=== PATIENT | male | born 1935 | race Asian ===

== ENCOUNTER 2016-04-30 12:58 | Inpatient (IN) | payer MEDICARE ==
[~2016-04-30] VITALS: Ht 170.2 cm; Wt 70.0 kg
[2016-04-30 14:27] LABS: Albumin 3.5 g/dL (3.4-5.0); BUN/Creatinine Ratio 22.2; Basophils # (auto) 0 uL; Basophils % (auto) 0.4 % (0.0-2.0); Calcium 8.9 mg/dL (8.5-10.1); Eosinophils # (auto) 0 uL; Eosinophils % (auto) 0.2 % (0.0-7.0); Hematocrit 40.6 % (41.0-53.0); Hemoglobin 13.1 g/dL (13.5-17.5); Lymphocytes % (auto) 16.2 % (10.0-50.0); Magnesium 2.4 mg/dL (1.6-2.6); Mean Corpuscular Hemoglobin 29.8 pg (28.0-32.0); Mean Corpuscular Hgb Conc. 32.2 g/dL (32.0-36.0); Mean Corpuscular Volume 92.5 fL (80.0-100.0); Mean Platelet Volume 9.4 fL (7.4-10.4); Monocytes # (auto) 0.8 uL; Monocytes % (auto) 12.1 % (0.0-12.0); Neutrophils # (auto) 4.5 uL; Neutrophils % (auto) 71.1 % (37.0-80.0); Platelet Count (auto) 150 10^3/uL (140-450); Potassium 3.6 mmol/L (3.5-5.1); Red Cell Distribution Width 15.6 % (11.6-16.0); White Blood Cell 6.4 10^3/uL (4.4-10.8)
[2016-04-30 14:30] LABS: INR 1.12 (0.9-1.15); Partial Thromboplastin Time 25.8 sec (22.64-33.71); Prothrombin Time 11.5 sec (9.37-12.3); Total Protein 8.3 g/dL (6.4-8.2)
[2016-04-30] MEDS ORDERED: SODIUM CHLORIDE 0.9% 1,000 ML IVB ONE (15:07)
[2016-04-30 15:21] LABS: Urine Blood Negative /uL (Negative); Urine Color Yellow (Yellow); Urine Glucose Normal (Normal); Urine Hyaline Cast FEW /lpf (0 - 2); Urine Ketone TRACE (Negative); Urine Nitrite Negative (Negative); Urine RBC 2 /hpf (0 - 3); Urine Squamous Epithelial Cell FEW /hpf (<5); Urine pH 5.5 (5.0-8.0)
[2016-04-30 15:28] LABS: Amylase 40 U/L (25-115)
[2016-04-30 15:40] LABS: Urine Bilirubin Negative (Negative)
[2016-04-30] MEDS ORDERED: PANTOPRAZOLE SODIUM 40 MG/10 ML VIAL IV ONE (16:30)
[2016-04-30] MEDS ORDERED: cefTRIAXone 1GM/50ML D5W 50 ML IV ONE (16:30)
[2016-04-30] MEDS ORDERED: SODIUM CHLORIDE 0.9% 1,000 ML IV ONE (16:30)
[2016-04-30] MEDS ORDERED: HYDROcodone-ACET 5/325MG TAB PO PRN (18:45)
[2016-04-30] MEDS ORDERED: MORPHINE SULF INJ 2 MG/ML SYRINGE 1ML IV PRN ×2 (18:45)
[2016-04-30] MEDS ORDERED: ONDANSETRON HCL 4 MG/2 ML VIAL IV PRN (18:45)
[2016-04-30] MEDS ORDERED: NITROGLYCERIN 0.4 MG SL TAB SL PRN (18:45)
[2016-04-30] MEDS ORDERED: ACETAMINOPHEN 325 MG TAB PO PRN (18:45)
[2016-04-30] MEDS ORDERED: DOCUSATE SOD 100 MG CAP PO PRN (18:45)
[2016-04-30] MEDS ORDERED: TEMAZEPAM 15 MG CAP PO PRN (18:45)
[2016-04-30] MEDS ORDERED: DEXTROSE (50%) 50ML SYRG IV PRN (18:45)
[2016-04-30] MEDS: SODIUM CHLORIDE 0.9% 1,000 ML IV SCH (18:49)
[2016-04-30] MEDS ORDERED: METOPROLOL SUCCINATE XL 50 MG TAB PO ONE (19:00)
[2016-04-30] MEDS ORDERED: MULTIPLE VITAMIN TAB PO ONE (19:00)
[2016-04-30 20:31] VITALS: BP 116/55
[2016-04-30] MEDS ORDERED: MET50T PO (21:10)
[2016-04-30] MEDS ORDERED: LEV100T PO (21:10)
[2016-04-30] MEDS: FAMOTIDINE 20 MG TAB PO SCH (21:27)
[2016-04-30] MEDS: ACCU-CHEK COMFORT CURVE STRIP VI SCH (21:28)
[2016-04-30] MEDS: InsuLIN REG 1unit/0.01ml Soln (100units/ml) SC SCH (21:30)
[2016-04-30 22:07] VITALS: BP 116/55
[2016-05-01] MEDS: SODIUM CHLORIDE 0.9% 1,000 ML IV SCH ×3 (02:44→17:20)
[2016-05-01 05:00] VITALS: BP 119/53
[2016-05-01] MEDS: LEVOTHYROXINE SODIUM 100 MCG TAB PO SCH (06:32)
[2016-05-01] MEDS: ACCU-CHEK COMFORT CURVE STRIP VI SCH ×4 (06:33→22:00)
[2016-05-01] MEDS: InsuLIN REG 1unit/0.01ml Soln (100units/ml) SC SCH ×4 (06:34→22:00)
[2016-05-01 08:18] VITALS: BP 114/61
[2016-05-01] MEDS: FAMOTIDINE 20 MG TAB PO SCH (09:53)
[2016-05-01] MEDS: MULTIPLE VITAMIN TAB PO SCH (09:53)
[2016-05-01] MEDS: METOPROLOL SUCCINATE XL 50 MG TAB PO SCH (09:54)
[2016-05-01 12:15] LABS: Basophils # (auto) 0 uL; Basophils % (auto) 0.3 % (0.0-2.0); Eosinophils # (auto) 0.1 uL; Eosinophils % (auto) 0.9 % (0.0-7.0); Hematocrit 32.5 % (41.0-53.0); Hemoglobin 10.5 g/dL (13.5-17.5); Lymphocytes # (auto) 1.4 uL; Lymphocytes % (auto) 24.8 % (10.0-50.0); Mean Corpuscular Hgb Conc. 32.2 g/dL (32.0-36.0); Mean Platelet Volume 9.4 fL (7.4-10.4); Monocytes # (auto) 0.7 uL; Monocytes % (auto) 11.8 % (0.0-12.0); Neutrophils # (auto) 3.5 uL; Neutrophils % (auto) 62.2 % (37.0-80.0); Platelet Count (auto) 112 10^3/uL (140-450); Red Cell Distribution Width 15.8 % (11.6-16.0); White Blood Cell 5.6 10^3/uL (4.4-10.8)
[2016-05-01 12:29] VITALS: BP 115/65
[2016-05-01 12:38] LABS: Albumin 2.7 g/dL (3.4-5.0); Calcium 7.9 mg/dL (8.5-10.1); Potassium 3.7 mmol/L (3.5-5.1)
[2016-05-01 12:41] LABS: Bilirubin, Total 1.1 mg/dL (0.2-1.0); Total Protein 6.1 g/dL (6.4-8.2)
[2016-05-01] MEDS ORDERED: CLINIMIX PER PHARMACY 0 ML IV SCH (15:30)
[2016-05-01 16:03] LABS: Magnesium 2.4 mg/dL (1.6-2.6); Phosphorus 2.3 mg/dL (2.6-4.90)
[2016-05-01 16:25] VITALS: BP 114/63
[2016-05-01] MEDS ORDERED: CLINIMIX PER PHARMACY IV NR ×5 (20:00)
[2016-05-01 22:00] VITALS: BP 115/48
[2016-05-02 05:30] VITALS: BP 125/53
[2016-05-02] MEDS: SODIUM CHLORIDE 0.9% 1,000 ML IV SCH ×2 (06:20→20:12)
[2016-05-02] MEDS: InsuLIN REG 1unit/0.01ml Soln (100units/ml) SC SCH ×4 (06:20→22:00)
[2016-05-02] MEDS: LEVOTHYROXINE SODIUM 100 MCG TAB PO SCH (06:20)
[2016-05-02] MEDS: ACCU-CHEK COMFORT CURVE STRIP VI SCH ×4 (06:20→22:27)
[2016-05-02 06:45] LABS: Basophils # (auto) 0 uL; Basophils % (auto) 0.2 % (0.0-2.0); Eosinophils # (auto) 0.1 uL; Eosinophils % (auto) 1.2 % (0.0-7.0); Hematocrit 31.1 % (41.0-53.0); Hemoglobin 10.1 g/dL (13.5-17.5); Lymphocytes # (auto) 1.1 uL; Lymphocytes % (auto) 22.6 % (10.0-50.0); Mean Corpuscular Hemoglobin 30.3 pg (28.0-32.0); Mean Corpuscular Hgb Conc. 32.4 g/dL (32.0-36.0); Mean Corpuscular Volume 93.4 fL (80.0-100.0); Mean Platelet Volume 9.8 fL (7.4-10.4); Monocytes # (auto) 0.7 uL; Monocytes % (auto) 14.9 % (0.0-12.0); Neutrophils % (auto) 61.1 % (37.0-80.0); Platelet Count (auto) 107 10^3/uL (140-450); Red Cell Distribution Width 16.1 % (11.6-16.0); White Blood Cell 4.9 10^3/uL (4.4-10.8)
[2016-05-02 06:46] LABS: Albumin 2.5 g/dL (3.4-5.0); Calcium 7.8 mg/dL (8.5-10.1); Magnesium 2.2 mg/dL (1.6-2.6); Potassium 3.7 mmol/L (3.5-5.1)
[2016-05-02 06:49] LABS: BUN/Creatinine Ratio 21.2
[2016-05-02 06:52] LABS: Bilirubin, Total 0.9 mg/dL (0.2-1.0); Total Protein 5.7 g/dL (6.4-8.2)
[2016-05-02 07:37] LABS: Phosphorus 2.5 mg/dL (2.6-4.90)
[2016-05-02 08:46] VITALS: BP 125/59
[2016-05-02] MEDS: MULTIPLE VITAMIN TAB PO SCH (10:00)
[2016-05-02] MEDS: METOPROLOL SUCCINATE XL 50 MG TAB PO SCH (10:00)
[2016-05-02 13:15] VITALS: BP 139/53
[2016-05-02 16:11] VITALS: BP 114/56
[2016-05-02] MEDS ORDERED: CLINIMIX PER PHARMACY IV NR ×6 (20:00)
[2016-05-02 21:50] VITALS: BP 108/56
[2016-05-03] VITALS (29 sets, daily range): BP systolic 96–157; BP diastolic 45–73
[2016-05-03 06:03] LABS: Albumin 2.4 g/dL (3.4-5.0); BUN/Creatinine Ratio 21.8; Bilirubin, Total 0.8 mg/dL (0.2-1.0); Calcium 7.7 mg/dL (8.5-10.1); Magnesium 2.2 mg/dL (1.6-2.6); Phosphorus 2.1 mg/dL (2.6-4.90); Potassium 3.7 mmol/L (3.5-5.1); Total Protein 5.6 g/dL (6.4-8.2)
[2016-05-03] MEDS: ACCU-CHEK COMFORT CURVE STRIP VI SCH ×3 (06:23→22:08)
[2016-05-03] MEDS: InsuLIN REG 1unit/0.01ml Soln (100units/ml) SC SCH ×3 (06:23→22:07)
[2016-05-03] MEDS: LEVOTHYROXINE SODIUM 100 MCG TAB PO SCH (06:23)
[2016-05-03] MEDS ORDERED: POTASSIUM PHOSP 22MEQ(15MMOLE) in NS 100 ML IV ONE (06:45)
[2016-05-03] MEDS: METOPROLOL SUCCINATE XL 50 MG TAB PO SCH (09:02)
[2016-05-03] MEDS: SODIUM CHLORIDE 0.9% 1,000 ML IV SCH (09:02)
[2016-05-03] MEDS: MULTIPLE VITAMIN TAB PO SCH (09:03)
[2016-05-03] MEDS ORDERED: POVIDONE IODINE 10 % TOPICAL OINT 30GM TOP ONE (13:30)
[2016-05-03] MEDS ORDERED: ceFAZolin 1GM VL ONE (13:30)
[2016-05-03] MEDS ORDERED: ETOMIDATE (2MG/ML) 20ML VIAL IV ONE (13:57)
[2016-05-03] MEDS ORDERED: ROCURONIUM 10MG/ML 10ML VIAL IV ONE (14:02)
[2016-05-03] MEDS ORDERED: fentaNYL CITRATE 10 ML ONE (14:02)
[2016-05-03] MEDS ORDERED: HYDROmorphone HCL 2 MG/ML VL ONE ×2 (14:02→16:16)
[2016-05-03] MEDS ORDERED: ceFAZolin 1GM/50ML D5W 50 ML IV ONE (14:26)
[2016-05-03] MEDS ORDERED: GELATIN 1 SPONGE SIZE 100 TOP ONE (16:09)
[2016-05-03] MEDS ORDERED: GELATIN 1 SPONGE SIZE 50 TOP ONE (16:09)
[2016-05-03] MEDS ORDERED: THROMBIN (BOVINE) 5000 UNIT SOL VIAL ONE ×2 (16:10→16:14)
[2016-05-03] MEDS ORDERED: MIDAZOLAM HCL 1MG/1ML-2 ML VIAL ONE (16:16)
[2016-05-03] MEDS ORDERED: ePHEDrine SULFATE 50 MG/ML AMP IV PRN (17:15)
[2016-05-03] MEDS ORDERED: MORPHINE SULF INJ 2 MG/ML SYRINGE 1ML IV PRN ×2 (17:15→18:00)
[2016-05-03] MEDS ORDERED: LABETALOL HCL 5 MG/ML 4ML SYRINGE IV PRN (17:15)
[2016-05-03] MEDS ORDERED: MIDAZOLAM HCL 1MG/1ML-2 ML VIAL IV PRN (17:15)
[2016-05-03] MEDS ORDERED: ONDANSETRON HCL 4 MG/2 ML VIAL IV ONE (17:15)
[2016-05-03] MEDS ORDERED: HYDROmorphone HCL 2 MG/ML VL IV PRN (17:15)
[2016-05-03] MEDS ORDERED: ALBUMIN 5% 250 ML IV ONE (17:20)
[2016-05-03] MEDS ORDERED: MIDAZOLAM DRIP 100 mg/100mL NS 100 ML IV ONE (17:42)
[2016-05-03] MEDS ORDERED: TEMAZEPAM 15 MG CAP PO PRN (18:00)
[2016-05-03] MEDS: LACTATED RINGER'S 1,000 ML IV SCH (18:00)
[2016-05-03] MEDS ORDERED: MIDAZOLAM DRIP 100 mg/100mL NS 100 ML IV SCH (18:00)
[2016-05-03] MEDS ORDERED: SOD CHL 0.45% WITH 20MEQ KCL 1,000 ML IV ONE (18:00)
[2016-05-03] MEDS ORDERED: ACETAMINOPHEN 325 MG TAB PO PRN (18:00)
[2016-05-03] MEDS ORDERED: ONDANSETRON HCL 4 MG/2 ML VIAL IV PRN (18:00)
[2016-05-03] MEDS ORDERED: CLINIMIX PER PHARMACY 0 ML IV SCH (18:00)
[2016-05-03] MEDS ORDERED: NITROGLYCERIN 0.4 MG SL TAB SL PRN (18:00)
[2016-05-03] MEDS ORDERED: DEXTROSE (50%) 50ML SYRG IV PRN (18:00)
[2016-05-03] MEDS ORDERED: CALCIUM GLUC 4.65 MEQ/10ML 4.65 MEQ in SODIUM CHL 0.9% 50 ML IV ONE (18:15)
[2016-05-03] MEDS ORDERED: SODIUM BICARBONATE 8.4% INJ 50ML SYRINGE ONE (19:18)
[2016-05-03] MEDS ORDERED: SODIUM BICARBONATE 8.4 % INJ 50ML VIAL IV ONE (19:30)
[2016-05-03] MEDS ORDERED: CLINIMIX PER PHARMACY IV NR ×6 (20:00)
[2016-05-03 20:39] LABS: Basophils # (auto) 0 uL; Basophils % (auto) 0.4 % (0.0-2.0); Eosinophils # (auto) 0 uL; Hematocrit 37.9 % (41.0-53.0); Hemoglobin 12.2 g/dL (13.5-17.5); Lymphocytes # (auto) 0.6 uL; Lymphocytes % (auto) 5.4 % (10.0-50.0); Mean Corpuscular Hemoglobin 29.7 pg (28.0-32.0); Mean Corpuscular Hgb Conc. 32.3 g/dL (32.0-36.0); Mean Corpuscular Volume 92.1 fL (80.0-100.0); Mean Platelet Volume 9.3 fL (7.4-10.4); Monocytes # (auto) 0.6 uL; Monocytes % (auto) 4.9 % (0.0-12.0); Neutrophils # (auto) 10.1 uL; Neutrophils % (auto) 89.3 % (37.0-80.0); Platelet Count (auto) 87 10^3/uL (140-450); Red Cell Distribution Width 16.3 % (11.6-16.0); White Blood Cell 11.3 10^3/uL (4.4-10.8)
[2016-05-03] MEDS: ceFAZolin 1GM/50ML D5W 50 ML IV SCH (21:50)
[2016-05-03] MEDS: metroNIDAZOLE 500MG/100ML 100 ML IV SCH (22:29)
[2016-05-04] VITALS (87 sets, daily range): BP systolic 82–124; BP diastolic 35–59
[2016-05-04] MEDS: LACTATED RINGER'S 1,000 ML IV SCH ×4 (02:00→20:00)
[2016-05-04 03:45] LABS: Basophils # (auto) 0 uL; Eosinophils # (auto) 0 uL; Hematocrit 33.7 % (41.0-53.0); Hemoglobin 10.9 g/dL (13.5-17.5); Lymphocytes # (auto) 0.7 uL; Lymphocytes % (auto) 6.2 % (10.0-50.0); Mean Corpuscular Hemoglobin 29.9 pg (28.0-32.0); Mean Corpuscular Hgb Conc. 32.5 g/dL (32.0-36.0); Mean Corpuscular Volume 91.9 fL (80.0-100.0); Mean Platelet Volume 9.7 fL (7.4-10.4); Monocytes # (auto) 0.5 uL; Monocytes % (auto) 4.7 % (0.0-12.0); Neutrophils # (auto) 9.4 uL; Neutrophils % (auto) 89.1 % (37.0-80.0); Platelet Count (auto) 78 10^3/uL (140-450); Red Cell Distribution Width 15.9 % (11.6-16.0); White Blood Cell 10.6 10^3/uL (4.4-10.8)
[2016-05-04 04:03] LABS: Albumin 2.2 g/dL (3.4-5.0); BUN/Creatinine Ratio 21.8; Bilirubin, Total 1.3 mg/dL (0.2-1.0); Calcium 7.2 mg/dL (8.5-10.1); Magnesium 1.7 mg/dL (1.6-2.6); Phosphorus 2.5 mg/dL (2.6-4.90); Potassium 4.4 mmol/L (3.5-5.1); Total Protein 4.7 g/dL (6.4-8.2)
[2016-05-04] MEDS: ceFAZolin 1GM/50ML D5W 50 ML IV SCH ×3 (05:33→21:44)
[2016-05-04] MEDS: LEVOTHYROXINE SODIUM 100 MCG TAB PO SCH (06:00)
[2016-05-04] MEDS: metroNIDAZOLE 500MG/100ML 100 ML IV SCH ×3 (06:00→21:45)
[2016-05-04] MEDS: InsuLIN REG 1unit/0.01ml Soln (100units/ml) SC SCH ×4 (06:19→22:00)
[2016-05-04] MEDS: ACCU-CHEK COMFORT CURVE STRIP VI SCH ×4 (06:19→22:27)
[2016-05-04] MEDS ORDERED: ALBUMIN 25% 50 ML IV ONE (06:45)
[2016-05-04 07:52] LABS: Partial Thromboplastin Time 29.7 sec (22.64-33.71)
[2016-05-04 08:01] LABS: INR 1.21 (0.9-1.15); Prothrombin Time 12.5 sec (9.37-12.3)
[2016-05-04] MEDS: MORPHINE SULF INJ 2 MG/ML SYRINGE 1ML IV PRN ×2 (08:40→18:50)
[2016-05-04] MEDS ORDERED: SODIUM PHOSP 20MEQ(15MMOL) IN NS 100 ML IV ONE (09:00)
[2016-05-04] MEDS: MULTIPLE VITAMIN TAB PO SCH (09:33)
[2016-05-04] MEDS: METOPROLOL SUCCINATE XL 50 MG TAB PO SCH (09:34)
[2016-05-04] MEDS ORDERED: LIDOCAINE 1% HCL (LOCAL ANESTH.) INJ 20ML MDV ID ONE (14:45)
[2016-05-04] MEDS ORDERED: FUROSEMIDE 20 MG/2 ML VIAL IV ONE (15:45)
[2016-05-04] MEDS ORDERED: SODIUM CHLORIDE 0.9% 1,000 ML IV SCH (17:30)
[2016-05-04] MEDS ORDERED: PPN PER PHARMACY 0 ML IV SCH (20:00)
[2016-05-04] MEDS ORDERED: PPN PER PHARMACY IV NR ×9 (20:00)
[2016-05-04] MEDS: HYDROcodone-ACET 5/325MG TAB PO PRN (21:36)
[2016-05-04] MEDS: SODIUM CHLOR 0.9% PF (SALINE LOCK) 10ML VIAL IV SCH (22:00)
[2016-05-04] MEDS: MIDAZOLAM DRIP 100 mg/100mL NS 100 ML IV SCH (23:00)
[2016-05-05] VITALS (88 sets, daily range): BP systolic 100–133; BP diastolic 36–99
[2016-05-05] MEDS: MIDAZOLAM DRIP 100 mg/100mL NS 100 ML IV SCH ×2 (03:19→19:30)
[2016-05-05] MEDS: MORPHINE SULF INJ 2 MG/ML SYRINGE 1ML IV PRN ×3 (03:19→19:23)
[2016-05-05 04:12] LABS: Basophils # (auto) 0 uL; Eosinophils # (auto) 0 uL; Eosinophils % (auto) 0.3 % (0.0-7.0); Hemoglobin 9.8 g/dL (13.5-17.5); Lymphocytes # (auto) 0.7 uL; Mean Corpuscular Hemoglobin 29.9 pg (28.0-32.0); Mean Corpuscular Hgb Conc. 32.5 g/dL (32.0-36.0); Mean Corpuscular Volume 91.8 fL (80.0-100.0); Mean Platelet Volume 9.8 fL (7.4-10.4); Monocytes # (auto) 0.6 uL; Monocytes % (auto) 9.6 % (0.0-12.0); Neutrophils # (auto) 5.2 uL; Neutrophils % (auto) 80.1 % (37.0-80.0); Platelet Count (auto) 78 10^3/uL (140-450); Red Cell Distribution Width 16.3 % (11.6-16.0); White Blood Cell 6.5 10^3/uL (4.4-10.8)
[2016-05-05 04:26] LABS: BUN/Creatinine Ratio 23.9; Bilirubin, Total 1.2 mg/dL (0.2-1.0); Calcium 7.3 mg/dL (8.5-10.1); Magnesium 1.8 mg/dL (1.6-2.6); Phosphorus 1.9 mg/dL (2.6-4.90); Potassium 3.5 mmol/L (3.5-5.1); Total Protein 4.5 g/dL (6.4-8.2)
[2016-05-05] MEDS: ceFAZolin 1GM/50ML D5W 50 ML IV SCH ×3 (05:45→21:27)
[2016-05-05] MEDS: metroNIDAZOLE 500MG/100ML 100 ML IV SCH ×3 (05:50→21:27)
[2016-05-05] MEDS: LACTATED RINGER'S 1,000 ML IV SCH ×2 (05:55→16:36)
[2016-05-05] MEDS: InsuLIN REG 1unit/0.01ml Soln (100units/ml) SC SCH ×4 (06:19→21:29)
[2016-05-05] MEDS: ACCU-CHEK COMFORT CURVE STRIP VI SCH ×4 (06:20→21:27)
[2016-05-05] MEDS: LEVOTHYROXINE SODIUM 100 MCG TAB PO SCH (06:35)
[2016-05-05] MEDS ORDERED: POTASSIUM PHOSP 22MEQ(15MMOLE) in NS 100 ML IV ONE (07:30)
[2016-05-05] MEDS: MULTIPLE VITAMIN TAB PO SCH (10:00)
[2016-05-05] MEDS: METOPROLOL SUCCINATE XL 50 MG TAB PO SCH (10:00)
[2016-05-05] MEDS: SODIUM CHLOR 0.9% PF (SALINE LOCK) 10ML VIAL IV SCH ×2 (11:47→21:27)
[2016-05-05] MEDS ORDERED: PPN PER PHARMACY IV NR ×10 (20:00)
[2016-05-06] VITALS (40 sets, daily range): BP systolic 106–148; BP diastolic 37–67
[2016-05-06] MEDS: LACTATED RINGER'S 1,000 ML IV SCH ×3 (02:00→23:30)
[2016-05-06 03:59] LABS: Basophils # (auto) 0 uL; DEFINITIVE VIEW TRANSMISSION; Eosinophils # (auto) 0.1 uL; Eosinophils % (auto) 1.1 % (0.0-7.0); Hematocrit 27.9 % (41.0-53.0); Hemoglobin 9.1 g/dL (13.5-17.5); Lymphocytes # (auto) 0.7 uL; Lymphocytes % (auto) 12.8 % (10.0-50.0); Mean Corpuscular Hemoglobin 29.7 pg (28.0-32.0); Mean Corpuscular Hgb Conc. 32.5 g/dL (32.0-36.0); Mean Corpuscular Volume 91.5 fL (80.0-100.0); Mean Platelet Volume 9.9 fL (7.4-10.4); Monocytes # (auto) 0.6 uL; Monocytes % (auto) 10.8 % (0.0-12.0); Neutrophils % (auto) 75.3 % (37.0-80.0); Platelet Count (auto) 61 10^3/uL (140-450); White Blood Cell 5.3 10^3/uL (4.4-10.8)
[2016-05-06 04:15] LABS: Albumin 1.8 g/dL (3.4-5.0); Calcium 7.2 mg/dL (8.5-10.1); Potassium 3.6 mmol/L (3.5-5.1)
[2016-05-06 04:18] LABS: BUN/Creatinine Ratio 21.8
[2016-05-06 04:21] LABS: Bilirubin, Total 1.4 mg/dL (0.2-1.0); Total Protein 4.3 g/dL (6.4-8.2)
[2016-05-06] MEDS: MORPHINE SULF INJ 2 MG/ML SYRINGE 1ML IV PRN ×3 (04:31→17:02)
[2016-05-06 04:33] LABS: Phosphorus 1.6 mg/dL (2.6-4.90)
[2016-05-06] MEDS: metroNIDAZOLE 500MG/100ML 100 ML IV SCH ×3 (05:34→22:05)
[2016-05-06] MEDS: ceFAZolin 1GM/50ML D5W 50 ML IV SCH ×3 (05:34→22:05)
[2016-05-06] MEDS: LEVOTHYROXINE SODIUM 100 MCG TAB PO SCH (05:43)
[2016-05-06] MEDS: ACCU-CHEK COMFORT CURVE STRIP VI SCH ×4 (06:19→22:06)
[2016-05-06] MEDS: InsuLIN REG 1unit/0.01ml Soln (100units/ml) SC SCH ×4 (06:23→22:07)
[2016-05-06] MEDS: METOPROLOL SUCCINATE XL 50 MG TAB PO SCH (09:28)
[2016-05-06] MEDS: MULTIPLE VITAMIN TAB PO SCH (09:28)
[2016-05-06] MEDS ORDERED: POTASSIUM PHOSP 26.4MEQ(18MMOL) IN NS 100 ML IV ONE (09:45)
[2016-05-06] MEDS ORDERED: TPN PER PHARMACY IV SCH (10:00)
[2016-05-06] MEDS: SODIUM CHLOR 0.9% PF (SALINE LOCK) 10ML VIAL IV SCH ×2 (10:00→22:05)
[2016-05-06] MEDS ORDERED: TPN PER PHARMACY IV NR ×10 (20:00)
[2016-05-07 05:00] VITALS: BP 131/59
[2016-05-07 05:23] LABS: Basophils # (auto) 0 uL; Basophils % (auto) 0.1 % (0.0-2.0); Eosinophils # (auto) 0.1 uL; Eosinophils % (auto) 1.1 % (0.0-7.0); Hemoglobin 9.8 g/dL (13.5-17.5); Lymphocytes # (auto) 0.9 uL; Lymphocytes % (auto) 12.7 % (10.0-50.0); Mean Corpuscular Hemoglobin 30.1 pg (28.0-32.0); Mean Corpuscular Hgb Conc. 32.7 g/dL (32.0-36.0); Mean Corpuscular Volume 92.1 fL (80.0-100.0); Mean Platelet Volume 11.3 fL (7.4-10.4); Monocytes # (auto) 0.7 uL; Monocytes % (auto) 10.3 % (0.0-12.0); Neutrophils # (auto) 5.2 uL; Neutrophils % (auto) 75.8 % (37.0-80.0); Platelet Count (auto) 76 10^3/uL (140-450); White Blood Cell 6.8 10^3/uL (4.4-10.8)
[2016-05-07 05:43] LABS: Potassium 3.9 mmol/L (3.5-5.1)
[2016-05-07 05:47] LABS: Albumin 1.9 g/dL (3.4-5.0); BUN/Creatinine Ratio 24.1; Calcium 7.3 mg/dL (8.5-10.1); Magnesium 2.1 mg/dL (1.6-2.6)
[2016-05-07 05:51] LABS: Bilirubin, Total 1.7 mg/dL (0.2-1.0); Phosphorus 1.9 mg/dL (2.6-4.90); Total Protein 4.7 g/dL (6.4-8.2)
[2016-05-07] MEDS: ceFAZolin 1GM/50ML D5W 50 ML IV SCH ×3 (05:53→21:27)
[2016-05-07] MEDS: metroNIDAZOLE 500MG/100ML 100 ML IV SCH ×3 (05:53→21:27)
[2016-05-07] MEDS: ACCU-CHEK COMFORT CURVE STRIP VI SCH ×4 (06:30→20:55)
[2016-05-07] MEDS: InsuLIN REG 1unit/0.01ml Soln (100units/ml) SC SCH ×4 (06:39→20:55)
[2016-05-07 09:00] VITALS: BP 141/61
[2016-05-07] MEDS ORDERED: POTASSIUM PHOSPHATE 44 MEQ in NS 0.9% 250 ML IV ONE (09:30)
[2016-05-07 13:00] VITALS: BP 126/67
[2016-05-07] MEDS: MULTIPLE VITAMIN TAB PO SCH (13:08)
[2016-05-07] MEDS: HYDROcodone-ACET 5/325MG TAB PO PRN (13:09)
[2016-05-07] MEDS: SODIUM CHLOR 0.9% PF (SALINE LOCK) 10ML VIAL IV SCH ×2 (13:10→21:28)
[2016-05-07] MEDS: LEVOTHYROXINE SODIUM 100 MCG TAB PO SCH (13:15)
[2016-05-07] MEDS: METOPROLOL SUCCINATE XL 50 MG TAB PO SCH (13:15)
[2016-05-07] MEDS: LACTATED RINGER'S 1,000 ML IV SCH (13:35)
[2016-05-07 17:00] VITALS: BP 129/64
[2016-05-07] MEDS ORDERED: TPN PER PHARMACY IV NR ×10 (20:00)
[2016-05-07 21:45] VITALS: BP 118/57
[2016-05-08] MEDS: LACTATED RINGER'S 1,000 ML IV SCH (02:15)
[2016-05-08 04:41] VITALS: BP 110/56
[2016-05-08] MEDS: ceFAZolin 1GM/50ML D5W 50 ML IV SCH ×3 (05:31→22:31)
[2016-05-08] MEDS: metroNIDAZOLE 500MG/100ML 100 ML IV SCH (05:31)
[2016-05-08] MEDS: InsuLIN REG 1unit/0.01ml Soln (100units/ml) SC SCH ×4 (06:31→22:00)
[2016-05-08] MEDS: ACCU-CHEK COMFORT CURVE STRIP VI SCH ×4 (06:31→22:32)
[2016-05-08] MEDS: LEVOTHYROXINE SODIUM 100 MCG TAB PO SCH (06:31)
[2016-05-08 06:40] LABS: Basophils # (auto) 0 uL; Basophils % (auto) 0.4 % (0.0-2.0); Eosinophils # (auto) 0.1 uL; Eosinophils % (auto) 1.6 % (0.0-7.0); Hematocrit 30.5 % (41.0-53.0); Hemoglobin 9.8 g/dL (13.5-17.5); Lymphocytes # (auto) 0.8 uL; Lymphocytes % (auto) 12.1 % (10.0-50.0); Mean Corpuscular Hemoglobin 29.8 pg (28.0-32.0); Mean Corpuscular Hgb Conc. 32.1 g/dL (32.0-36.0); Mean Corpuscular Volume 92.7 fL (80.0-100.0); Monocytes # (auto) 0.7 uL; Monocytes % (auto) 10.8 % (0.0-12.0); Neutrophils % (auto) 75.1 % (37.0-80.0); Platelet Count (auto) 95 10^3/uL (140-450); Red Cell Distribution Width 16.2 % (11.6-16.0); White Blood Cell 6.6 10^3/uL (4.4-10.8)
[2016-05-08 06:58] LABS: Albumin 1.8 g/dL (3.4-5.0); BUN/Creatinine Ratio 24.3; Bilirubin, Total 1.5 mg/dL (0.2-1.0); Calcium 7.4 mg/dL (8.5-10.1); Magnesium 2.3 mg/dL (1.6-2.6); Phosphorus 2.1 mg/dL (2.6-4.90); Total Protein 4.7 g/dL (6.4-8.2)
[2016-05-08 08:30] VITALS: BP 112/60
[2016-05-08] MEDS ORDERED: POTASSIUM PHOSPHATE 44 MEQ in NS 0.9% 250 ML IV ONE (09:30)
[2016-05-08] MEDS: METOPROLOL SUCCINATE XL 50 MG TAB PO SCH (10:00)
[2016-05-08] MEDS ORDERED: ACETAMINOPHEN/CODEINE#3 (300/30mg) TAB PO PRN ×2 (10:15)
[2016-05-08] MEDS: SODIUM CHLOR 0.9% PF (SALINE LOCK) 10ML VIAL IV SCH ×2 (11:06→22:32)
[2016-05-08] MEDS: MULTIPLE VITAMIN TAB PO SCH (11:06)
[2016-05-08] MEDS: Boost Glucose Control 8 Ounces PO SCH ×2 (12:00→17:47)
[2016-05-08 12:43] VITALS: BP 114/59
[2016-05-08] MEDS: metroNIDAZOLE 500 MG TAB PO SCH ×2 (13:48→22:32)
[2016-05-08 17:19] VITALS: BP 126/64
[2016-05-08] MEDS ORDERED: TPN PER PHARMACY IV NR ×10 (20:00)
[2016-05-08 21:30] VITALS: BP 126/62
[2016-05-09 04:54] VITALS: BP 120/55
[2016-05-09] MEDS: metroNIDAZOLE 500 MG TAB PO SCH ×3 (05:31→22:37)
[2016-05-09] MEDS: ceFAZolin 1GM/50ML D5W 50 ML IV SCH ×3 (05:31→22:37)
[2016-05-09 06:26] LABS: Albumin 1.9 g/dL (3.4-5.0); Alkaline Phosphatase 127 U/L (45-117); Anion Gap 8 (5-15); Aspartate Aminotransferase 14 U/L (15-37); BUN/Creatinine Ratio 22.4; Bilirubin, Total 1.4 mg/dL (0.2-1.0); Blood Urea Nitrogen 17 mg/dL (7-18); Calcium 7.3 mg/dL (8.5-10.1); Carbon Dioxide 27 mmol/L (21-32); Chloride 103 mmol/L (98-107); GFR African American 126 mL/min; GFR Non-African American 104 mL/min; Glucose 103 mg/dL (74-106); Magnesium 2.1 mg/dL (1.6-2.6); Phosphorus 1.7 mg/dL (2.6-4.90); Sodium 138 mmol/L (136-145); Total Protein 4.6 g/dL (6.4-8.2)
[2016-05-09] MEDS: ACCU-CHEK COMFORT CURVE STRIP VI SCH ×4 (06:44→22:38)
[2016-05-09] MEDS: InsuLIN REG 1unit/0.01ml Soln (100units/ml) SC SCH ×4 (06:44→21:55)
[2016-05-09] MEDS: LEVOTHYROXINE SODIUM 100 MCG TAB PO SCH (06:44)
[2016-05-09] MEDS: Boost Glucose Control 8 Ounces PO SCH ×3 (07:33→18:00)
[2016-05-09 08:30] VITALS: BP 113/51
[2016-05-09] MEDS: METOPROLOL SUCCINATE XL 50 MG TAB PO SCH (10:00)
[2016-05-09] MEDS: MULTIPLE VITAMIN TAB PO SCH (10:22)
[2016-05-09] MEDS: SODIUM CHLOR 0.9% PF (SALINE LOCK) 10ML VIAL IV SCH ×2 (10:22→22:37)
[2016-05-09 13:00] VITALS: BP 117/58
[2016-05-09 16:53] VITALS: BP 117/63
[2016-05-09 20:00] VITALS: BP 120/59
[2016-05-10 04:41] VITALS: BP 117/64
[2016-05-10] MEDS: ceFAZolin 1GM/50ML D5W 50 ML IV SCH ×2 (06:10→14:28)
[2016-05-10] MEDS: metroNIDAZOLE 500 MG TAB PO SCH ×2 (06:11→14:28)
[2016-05-10] MEDS: LEVOTHYROXINE SODIUM 100 MCG TAB PO SCH (06:37)
[2016-05-10] MEDS: ACCU-CHEK COMFORT CURVE STRIP VI SCH ×2 (06:38→11:35)
[2016-05-10] MEDS: InsuLIN REG 1unit/0.01ml Soln (100units/ml) SC SCH ×2 (06:38→11:35)
[2016-05-10] MEDS: Boost Glucose Control 8 Ounces PO SCH ×2 (08:00→12:00)
[2016-05-10 09:00] VITALS: BP 114/58
[2016-05-10] MEDS: SODIUM CHLOR 0.9% PF (SALINE LOCK) 10ML VIAL IV SCH (10:00)
[2016-05-10] MEDS: METOPROLOL SUCCINATE XL 50 MG TAB PO SCH (11:03)
[2016-05-10] MEDS: MULTIPLE VITAMIN TAB PO SCH (11:04)
[2016-05-10] MEDS: HYDROcodone-ACET 5/325MG TAB PO PRN (12:50)
[2016-05-10 13:00] VITALS: BP 120/61
[2016-05-10 16:00] VITALS: BP 130/58
== END 2016-05-10 19:30 | disposition home or self-care (01) | DRG 329 ==
LOC: ER 13:01 → TELE 13:02 → TELE-WESTW 20:11 → ICU WEST 05-03 19:09 → CENTRAL 05-06 14:08 → TELE-CENTR 05-06 21:10
PROVIDERS: ADMIT Internal Medicine; ATTEND Family Medicine
PROC: 0D1B0ZL Bypass Ileum to Transverse Colon, Open Approach (ICD-10-PCS; 2016-05-03)
PROC: 06Q00ZZ Repair Inferior Vena Cava, Open Approach (ICD-10-PCS; 2016-05-03)
PROC: 30233L1 Transfusion of Nonautologous Fresh Plasma into Peripheral Vein, Percutaneous Approach (ICD-10-PCS; 2016-05-03)
PROC: 30233N1 Transfusion of Nonautologous Red Blood Cells into Peripheral Vein, Percutaneous Approach (ICD-10-PCS; 2016-05-03)
PROC: 30233R1 Transfusion of Nonautologous Platelets into Peripheral Vein, Percutaneous Approach (ICD-10-PCS; 2016-05-03)
PROC: 30233K1 Transfusion of Nonautologous Frozen Plasma into Peripheral Vein, Percutaneous Approach (ICD-10-PCS; 2016-05-03)
PROC: 5A1945Z Respiratory Ventilation, 24-96 Consecutive Hours (ICD-10-PCS; 2016-05-03)
PROC: 0BH17EZ Insertion of Endotracheal Airway into Trachea, Via Natural or Artificial Opening (ICD-10-PCS; 2016-05-03)
PROC: 02HV33Z Insertion of Infusion Device into Superior Vena Cava, Percutaneous Approach (ICD-10-PCS; 2016-05-03)
PROC: 0DTF0ZZ Resection of Right Large Intestine, Open Approach (ICD-10-PCS; principal; 2016-05-03 14:37)
DX: K56.60 Unspecified intestinal obstruction (principal); E43 Unspecified severe protein-calorie malnutrition; E87.1 Hypo-osmolality and hyponatremia; I44.2 Atrioventricular block, complete; N18.3 Chronic kidney disease, stage 3 (moderate); E11.22 Type 2 diabetes mellitus with diabetic chronic kidney disease; E11.65 Type 2 diabetes mellitus with hyperglycemia; E03.9 Hypothyroidism, unspecified; E11.21 Type 2 diabetes mellitus with diabetic nephropathy; I12.9 Hypertensive chronic kidney disease with stage 1 through stage 4 chronic kidney disease, or unspecified chronic kidney disease; D63.8 Anemia in other chronic diseases classified elsewhere; Z68.24 Body mass index [BMI] 24.0-24.9, adult; I08.1 Rheumatic disorders of both mitral and tricuspid valves; K80.20 Calculus of gallbladder without cholecystitis without obstruction; I48.91 Unspecified atrial fibrillation; N28.1 Cyst of kidney, acquired; Z79.899 Other long term (current) drug therapy
CPT/HCPCS: 36415; 36569; 36600; 71010; 74000; 74176; 80053; 81001; 82040; 82150; 82805; 82962; 83036; 83605; 83690; 83735; 84100; 84443; 84478; 84484; 85025; 85610; 85730; 86850; 86900; 86901; 86920; 87081; 93005; 93306; 94002; 94003; 94761; 96361; 96365; 96375; 97001; C9113; J0690; J0696; J1815; J2250; J2405; J3490

== ENCOUNTER 2016-07-08 17:09 | Emergency (ER) | payer MEDICARE ==
[~2016-07-08] VITALS: Ht 170.2 cm; Wt 62.6 kg
[~2016-07-08 17:09] MED LIST: LEV100T PO; MET50T PO
[2016-07-08 19:01] LABS: Basophils # (auto) 0 uL; Basophils % (auto) 0.4 % (0.0-2.0); Eosinophils # (auto) 0.1 uL; Eosinophils % (auto) 1.7 % (0.0-7.0); Hematocrit 33.4 % (41.0-53.0); Lymphocytes # (auto) 1.2 uL; Lymphocytes % (auto) 30.4 % (10.0-50.0); Mean Corpuscular Hemoglobin 30.5 pg (28.0-32.0); Mean Corpuscular Volume 92.2 fL (80.0-100.0); Mean Platelet Volume 10.1 fL (7.4-10.4); Monocytes # (auto) 0.5 uL; Monocytes % (auto) 12.9 % (0.0-12.0); Neutrophils # (auto) 2.2 uL; Neutrophils % (auto) 54.6 % (37.0-80.0); Platelet Count (auto) 108 10^3/uL (140-450); Red Cell Distribution Width 16.6 % (11.6-16.0); White Blood Cell 4.1 10^3/uL (4.4-10.8)
[2016-07-08 19:15] LABS: Albumin 2.8 g/dL (3.4-5.0); BUN/Creatinine Ratio 25.3; Calcium 8.1 mg/dL (8.5-10.1); Potassium 3.9 mmol/L (3.5-5.1)
[2016-07-08 19:18] LABS: Bilirubin, Total 1.8 mg/dL (0.2-1.0)
[2016-07-08 22:30] VITALS: BP 126/72
== END 2016-07-08 23:19 | disposition left against medical advice (07) ==
LOC: ER 17:14
DX: K59.00 Constipation, unspecified (principal); K62.5 Hemorrhage of anus and rectum; Z53.21 Procedure and treatment not carried out due to patient leaving prior to being seen by health care provider
CPT/HCPCS: 36415; 80053; 85025

== ENCOUNTER 2019-12-13 14:20 | Inpatient (IN) | payer MEDICARE, OTHER ==
[~2019-12-13] VITALS: Ht 167.6 cm; Wt 72.8 kg
[~2019-12-13 14:20] MED LIST changes: +APIX5TAB OR; +ATOR20TA50 PO; +DIG0125T PO; +ENAL2.5T11 PO; +FURO1TAB33 PO; -LEV100T PO; -MET50T PO; +POTA1TAB61 PO
[2019-12-13 15:26] LABS: Hemoglobin 9.6 g/dL (13.5-17.5)
[2019-12-13 15:28] LABS: Hematocrit 30.6 % (41.0-53.0); Mean Corpuscular Hemoglobin 26.7 pg (28.0-32.0); Mean Corpuscular Hgb Conc. 31.4 g/dL (32.0-36.0); Mean Corpuscular Volume 85.1 fL (80.0-100.0); Platelet Count (auto) 106 10^3/uL (140-450); Red Blood Cells 3.59 10^6/uL (4.5-5.90); Red Cell Distribution Width 16.5 % (11.8-14.3); White Blood Cell 4.2 10^3/uL (4.4-10.8)
[2019-12-13 15:31] LABS: Basophils % (manual) 0 (0.0-2.0); Blast Cells 0; Metamyelocytes % 0; Myelocytes % 0; Promyelocytes % 0; Reactive Lymphocytes 0
[2019-12-13 15:45] LABS: Albumin 2.5 g/dL (3.4-5.0); Anion Gap 4 (5-15); Blood Urea Nitrogen 36 mg/dL (7-18); Calcium 8.3 mg/dL (8.5-10.1); Carbon Dioxide 25 mmol/L (21-32); Chloride 109 mmol/L (98-107); Glucose 142 mg/dL (74-106); Magnesium 2.4 mg/dL (1.6-2.6); Potassium 4.7 mmol/L (3.5-5.1); Sodium 138 mmol/L (136-145)
[2019-12-13 15:53] LABS: Alanine Aminotransferase 13 U/L (16-61); Alkaline Phosphatase 91 U/L (45-117); Aspartate Aminotransferase 20 U/L (15-37); BUN/Creatinine Ratio 23.4; Bilirubin, Total 2.5 mg/dL (0.2-1.0); GFR African American 55 mL/min; GFR Non-African American 46 mL/min; Total Protein 7.1 g/dL (6.4-8.2)
[2019-12-13 17:17] LABS: Band Neutrophils % (manual) 2; Eosinophils % (manual) 1 (0-7); Lymphocytes % (manual) 13 (10.0-50.0); Monocytes % (manual) 15 (0-12)
[2019-12-13] MEDS ORDERED: ONDANSETRON HCL 4 MG/2 ML VIAL IV PRN (21:45)
[2019-12-13] MEDS ORDERED: NITROGLYCERIN 0.4 MG SL TAB SL PRN (21:45)
[2019-12-13] MEDS ORDERED: ACETAMINOPHEN 325 MG TAB PO PRN (21:45)
[2019-12-13] MEDS ORDERED: DEXTROSE (50%) 50ML SYRG IV PRN (21:45)
[2019-12-13] MEDS ORDERED: MORPHINE SULF INJ 2 MG/ML SYRINGE 1ML IV PRN (21:45)
[2019-12-13] MEDS: FUROSEMIDE 40 MG/4 ML VIAL IV SCH (22:19)
[2019-12-13] MEDS: CARVEDILOL 3.125 MG TAB PO SCH (22:20)
[2019-12-13] MEDS: ATORVASTATIN 20 MG TAB PO SCH (22:20)
[2019-12-13 22:33] LABS: Urine Bacteria NONE SEEN /hpf (None Seen); Urine Blood 2+ /uL (Negative); Urine Hyaline Cast FEW /lpf (0 - 2); Urine Mucus FEW (None Seen); Urine Specific Gravity 1.019 (1.001-1.035); Urine WBC 8 /hpf (0 - 3)
[2019-12-13 23:41] VITALS: BP 101/69
[2019-12-13 23:50] VITALS: BP 101/69
[2019-12-13] MEDS: ACCU-CHEK COMFORT CURVE STRIP VI SCH (23:58)
[2019-12-13] MEDS: InsuLIN REG 1unit/0.01ml Soln (100units/ml) SC SCH (23:59)
[2019-12-14] MEDS ORDERED: FERR-20 PO (00:50)
[2019-12-14] MEDS ORDERED: TAMS0.4C36 PO (00:50)
[2019-12-14] MEDS: InsuLIN REG 1unit/0.01ml Soln (100units/ml) SC SCH ×2 (04:00→08:00)
[2019-12-14 05:00] VITALS: BP 107/68
[2019-12-14] MEDS: ACCU-CHEK COMFORT CURVE STRIP VI SCH ×2 (05:21→08:00)
[2019-12-14] MEDS: FUROSEMIDE 40 MG/4 ML VIAL IV SCH ×2 (05:22→17:55)
[2019-12-14 05:41] LABS: Hemoglobin 9.1 g/dL (13.5-17.5); Platelet Count (auto) 96 10^3/uL (140-450); White Blood Cell 3.9 10^3/uL (4.4-10.8)
[2019-12-14 05:43] LABS: Hematocrit 29.4 % (41.0-53.0); Mean Corpuscular Hemoglobin 26.6 pg (28.0-32.0); Mean Corpuscular Hgb Conc. 30.9 g/dL (32.0-36.0); Mean Corpuscular Volume 86.1 fL (80.0-100.0); Red Blood Cells 3.41 10^6/uL (4.5-5.90); Red Cell Distribution Width 16.8 % (11.8-14.3)
[2019-12-14 05:48] LABS: Calcium 7.8 mg/dL (8.5-10.1); Potassium 4.2 mmol/L (3.5-5.1)
[2019-12-14 05:52] LABS: BUN/Creatinine Ratio 23.9
[2019-12-14 06:33] LABS: Basophils % (manual) 0 (0.0-2.0); Blast Cells 0; Eosinophils % (manual) 0 (0-7); Metamyelocytes % 0; Myelocytes % 0; Promyelocytes % 0; Reactive Lymphocytes 0
[2019-12-14 07:29] LABS: Band Neutrophils % (manual) 1; Lymphocytes % (manual) 10 (10.0-50.0)
[2019-12-14 07:30] LABS: Monocytes % (manual) 20 (0-12)
[2019-12-14 09:00] VITALS: BP 120/67
[2019-12-14] MEDS: ASPirin 81 mg TAB PO SCH (09:58)
[2019-12-14] MEDS: CLOPIDOGREL BISULFATE 75 MG TAB PO SCH (09:59)
[2019-12-14] MEDS: CARVEDILOL 3.125 MG TAB PO SCH ×2 (09:59→21:14)
[2019-12-14] MEDS: DOCUSATE SOD 100 MG CAP PO SCH (10:00)
[2019-12-14] MEDS ORDERED: cefTRIAXone 1GM/50ML D5W 50 ML IV ONE (11:30)
[2019-12-14 13:00] VITALS: BP 105/66
[2019-12-14 17:00] VITALS: BP 117/65
[2019-12-14] MEDS: ATORVASTATIN 20 MG TAB PO SCH (21:14)
[2019-12-14 22:00] VITALS: BP 102/54
[2019-12-15 05:00] VITALS: BP 96/56
[2019-12-15] MEDS: FUROSEMIDE 40 MG/4 ML VIAL IV SCH ×2 (05:38→18:04)
[2019-12-15 09:27] VITALS: BP 92/52
[2019-12-15] MEDS: DOCUSATE SOD 100 MG CAP PO SCH (09:42)
[2019-12-15] MEDS: POTASSIUM CHL 20 Meq TABLET PO SCH (09:42)
[2019-12-15] MEDS: CARVEDILOL 3.125 MG TAB PO SCH ×2 (09:42→21:59)
[2019-12-15] MEDS: CLOPIDOGREL BISULFATE 75 MG TAB PO SCH (09:42)
[2019-12-15] MEDS: ASPirin 81 mg TAB PO SCH (09:42)
[2019-12-15] MEDS: cefTRIAXone 1GM/50ML D5W 50 ML IV SCH (09:45)
[2019-12-15 12:58] VITALS: BP 98/58
[2019-12-15] MEDS: DOBUTamine 1000MCG/ML 250 ML IV SCH (16:40)
[2019-12-15 17:00] VITALS: BP 107/70
[2019-12-15] MEDS: Ensure HIGH Protein Chocolate 8oz Bottle PO SCH (18:04)
[2019-12-15] MEDS: ATORVASTATIN 20 MG TAB PO SCH (21:58)
[2019-12-15 22:00] VITALS: BP 119/68
[2019-12-16 06:00] VITALS: BP 111/62
[2019-12-16] MEDS: FUROSEMIDE 40 MG/4 ML VIAL IV SCH ×2 (06:19→17:47)
[2019-12-16 06:20] LABS: Basophils # (auto) 0 10 ^3/uL (0-0.2); Basophils % (auto) 0.5 % (0.0-2.0); Eosinophils # (auto) 0 10 ^3/uL (0-0.8); Eosinophils % (auto) 1.8 % (0.0-7.0); Hematocrit 30.5 % (41.0-53.0); Hemoglobin 9.4 g/dL (13.5-17.5); Lymphocytes # (auto) 0.5 10 ^3/uL (0.4-5.4); Lymphocytes % (auto) 19.7 % (10.0-50.0); Mean Corpuscular Hemoglobin 26.4 pg (28.0-32.0); Mean Corpuscular Hgb Conc. 30.9 g/dL (32.0-36.0); Mean Corpuscular Volume 85.5 fL (80.0-100.0); Monocytes # (auto) 0.4 10 ^3/uL (0-1.3); Neutrophils # (auto) 1.7 10 ^3/uL (1.6-8.6); Nucleated Red Blood Cells % 0.1 %; Platelet Count (auto) 104 10^3/uL (140-450); Red Blood Cells 3.57 10^6/uL (4.5-5.90); Red Cell Distribution Width 16.4 % (11.8-14.3); White Blood Cell 2.7 10^3/uL (4.4-10.8)
[2019-12-16 06:38] LABS: Calcium 8.5 mg/dL (8.5-10.1); Potassium 3.5 mmol/L (3.5-5.1)
[2019-12-16 06:41] LABS: BUN/Creatinine Ratio 31.3
[2019-12-16] MEDS: DOBUTamine 1000MCG/ML 250 ML IV SCH ×2 (07:52→16:55)
[2019-12-16] MEDS: Ensure HIGH Protein Chocolate 8oz Bottle PO SCH ×3 (08:05→17:48)
[2019-12-16] MEDS: cefTRIAXone 1GM/50ML D5W 50 ML IV SCH (08:45)
[2019-12-16 09:00] VITALS: BP 118/70
[2019-12-16] MEDS: DOCUSATE SOD 100 MG CAP PO SCH (09:26)
[2019-12-16] MEDS: ASPirin 81 mg TAB PO SCH (09:26)
[2019-12-16] MEDS: CLOPIDOGREL BISULFATE 75 MG TAB PO SCH (09:26)
[2019-12-16] MEDS: POTASSIUM CHL 20 Meq TABLET PO SCH (09:26)
[2019-12-16] MEDS: CARVEDILOL 3.125 MG TAB PO SCH ×2 (09:27→22:17)
[2019-12-16] MEDS ORDERED: LEVOTHYROXINE SODIUM 50 MCG TAB PO ONE (12:00)
[2019-12-16 13:00] VITALS: BP 92/57
[2019-12-16 16:37] VITALS: BP 100/54
[2019-12-16 22:00] VITALS: BP 105/69
[2019-12-16] MEDS: ATORVASTATIN 20 MG TAB PO SCH (22:18)
[2019-12-17 06:00] VITALS: BP 103/43
[2019-12-17] MEDS: FUROSEMIDE 40 MG/4 ML VIAL IV SCH ×2 (06:00→18:41)
[2019-12-17] MEDS: DOBUTamine 1000MCG/ML 250 ML IV SCH (06:59)
[2019-12-17] MEDS: LEVOTHYROXINE SODIUM 50 MCG TAB PO SCH (07:00)
[2019-12-17] MEDS: Ensure HIGH Protein Chocolate 8oz Bottle PO SCH ×3 (08:20→18:42)
[2019-12-17] MEDS: cefTRIAXone 1GM/50ML D5W 50 ML IV SCH (08:42)
[2019-12-17 09:00] VITALS: BP 90/45
[2019-12-17] MEDS: POTASSIUM CHL 20 Meq TABLET PO SCH (09:22)
[2019-12-17] MEDS: DOCUSATE SOD 100 MG CAP PO SCH (09:22)
[2019-12-17] MEDS: CARVEDILOL 3.125 MG TAB PO SCH ×2 (09:22→22:20)
[2019-12-17] MEDS: ASPirin 81 mg TAB PO SCH (09:22)
[2019-12-17] MEDS: CLOPIDOGREL BISULFATE 75 MG TAB PO SCH (09:23)
[2019-12-17 10:06] LABS: Basophils # (auto) 0 10 ^3/uL (0-0.2); Basophils % (auto) 0.4 % (0.0-2.0); Eosinophils # (auto) 0 10 ^3/uL (0-0.8); Lymphocytes # (auto) 0.5 10 ^3/uL (0.4-5.4); Monocytes # (auto) 0.4 10 ^3/uL (0-1.3); Neutrophils # (auto) 1.5 10 ^3/uL (1.6-8.6); White Blood Cell 2.5 10^3/uL (4.4-10.8)
[2019-12-17 10:11] LABS: Hematocrit 29.4 % (41.0-53.0); Hemoglobin 9.1 g/dL (13.5-17.5); Lymphocytes % (auto) 19.9 % (10.0-50.0); Mean Corpuscular Hemoglobin 26.4 pg (28.0-32.0); Mean Corpuscular Hgb Conc. 30.9 g/dL (32.0-36.0); Mean Corpuscular Volume 85.3 fL (80.0-100.0); Monocytes % (auto) 17.4 % (0.0-12.0); Neutrophils % (auto) 61.3 % (37.0-80.0); Nucleated Red Blood Cells % 0.3 %; Platelet Count (auto) 118 10^3/uL (140-450); Red Blood Cells 3.45 10^6/uL (4.5-5.90); Red Cell Distribution Width 16.5 % (11.8-14.3)
[2019-12-17 10:21] LABS: Anion Gap 3 (5-15); Blood Urea Nitrogen 51 mg/dL (7-18); Calcium 8.3 mg/dL (8.5-10.1); Carbon Dioxide 32 mmol/L (21-32); Chloride 107 mmol/L (98-107); GFR African American 47 mL/min; GFR Non-African American 39 mL/min; Glucose 135 mg/dL (74-106); Potassium 3.3 mmol/L (3.5-5.1); Sodium 142 mmol/L (136-145)
[2019-12-17 13:00] VITALS: BP 92/47
[2019-12-17] MEDS ORDERED: POTASSIUM CHL 20 Meq TABLET PO ONE (13:30)
[2019-12-17 16:44] VITALS: BP 116/72
[2019-12-17 22:00] VITALS: BP 101/57
[2019-12-17] MEDS: ATORVASTATIN 20 MG TAB PO SCH (22:20)
[2019-12-18 05:00] VITALS: BP 124/76
[2019-12-18 05:14] LABS: INR 1.18 (0.9-1.15); Partial Thromboplastin Time 30.2 sec (23.0-31.2)
[2019-12-18] MEDS: FUROSEMIDE 40 MG/4 ML VIAL IV SCH (06:01)
[2019-12-18] MEDS: LEVOTHYROXINE SODIUM 50 MCG TAB PO SCH (06:02)
[2019-12-18 08:55] VITALS: BP 108/60
[2019-12-18] MEDS: ASPirin 81 mg TAB PO SCH (09:50)
[2019-12-18] MEDS: POTASSIUM CHL 20 Meq TABLET PO SCH (09:50)
[2019-12-18] MEDS: DOCUSATE SOD 100 MG CAP PO SCH (09:50)
[2019-12-18] MEDS: CLOPIDOGREL BISULFATE 75 MG TAB PO SCH (09:51)
[2019-12-18] MEDS: Ensure HIGH Protein Chocolate 8oz Bottle PO SCH ×3 (09:51→17:15)
[2019-12-18] MEDS: cefTRIAXone 1GM/50ML D5W 50 ML IV SCH (10:19)
[2019-12-18] MEDS: CARVEDILOL 3.125 MG TAB PO SCH ×2 (10:19→22:44)
[2019-12-18] MEDS: DOBUTamine 1000MCG/ML 250 ML IV SCH (10:19)
[2019-12-18 13:00] VITALS: BP 111/61
[2019-12-18 17:00] VITALS: BP 97/58
[2019-12-18] MEDS: FUROSEMIDE 20 MG TAB PO SCH (17:15)
[2019-12-18 22:00] VITALS: BP 111/63
[2019-12-18] MEDS: ATORVASTATIN 20 MG TAB PO SCH (22:44)
[2019-12-19 05:00] VITALS: BP 100/62
[2019-12-19] MEDS: FUROSEMIDE 20 MG TAB PO SCH (05:53)
[2019-12-19] MEDS: LEVOTHYROXINE SODIUM 50 MCG TAB PO SCH (06:40)
[2019-12-19] MEDS: Ensure HIGH Protein Chocolate 8oz Bottle PO SCH ×2 (08:40→12:20)
[2019-12-19 09:00] VITALS: BP 101/66
[2019-12-19] MEDS: cefTRIAXone 1GM/50ML D5W 50 ML IV SCH (09:00)
[2019-12-19] MEDS: ASPirin 81 mg TAB PO SCH (09:15)
[2019-12-19] MEDS: DOCUSATE SOD 100 MG CAP PO SCH (09:15)
[2019-12-19] MEDS: CARVEDILOL 3.125 MG TAB PO SCH (09:16)
[2019-12-19] MEDS: POTASSIUM CHL 20 Meq TABLET PO SCH (09:16)
[2019-12-19] MEDS: CLOPIDOGREL BISULFATE 75 MG TAB PO SCH (09:17)
[2019-12-19] MEDS ORDERED: SACUBITRIL-VALSARTAN 24mg/26mg TAB PO SCH (10:00)
[2019-12-19] MEDS ORDERED: DIGOXIN 0.125 MG TAB PO SCH (10:00)
[2019-12-19 13:00] VITALS: BP 98/59
== END 2019-12-19 15:25 | disposition home or self-care (01) | DRG 291 ==
LOC: ER 14:20 → TELE 14:21 → TELE-WESTW 23:15
PROVIDERS: ADMIT Hospitalist; ATTEND Internal Medicine
DX: I13.0 Hypertensive heart and chronic kidney disease with heart failure and stage 1 through stage 4 chronic kidney disease, or unspecified chronic kidney disease (principal); I50.43 Acute on chronic combined systolic (congestive) and diastolic (congestive) heart failure; J96.20 Acute and chronic respiratory failure, unspecified whether with hypoxia or hypercapnia; N39.0 Urinary tract infection, site not specified; I48.20 Chronic atrial fibrillation, unspecified; D68.59 Other primary thrombophilia; D61.818 Other pancytopenia; E44.0 Moderate protein-calorie malnutrition; I48.92 Unspecified atrial flutter; N18.3 Chronic kidney disease, stage 3 (moderate); R62.7 Adult failure to thrive; D69.6 Thrombocytopenia, unspecified; D50.9 Iron deficiency anemia, unspecified; D63.8 Anemia in other chronic diseases classified elsewhere; E03.9 Hypothyroidism, unspecified; F32.9 Major depressive disorder, single episode, unspecified; I08.1 Rheumatic disorders of both mitral and tricuspid valves
CPT/HCPCS: 36415; 71045; 71046; 80048; 80053; 80061; 80162; 81001; 82962; 83735; 83880; 84443; 84484; 85007; 85025; 85027; 85610; 85730; 86850; 86900; 86901; 87040; 87086; 93005; 93306; 96365; 96375; G0378; J0696

== ENCOUNTER 2020-08-27 10:59 | Inpatient (IN) | payer MEDICARE, OTHER ==
[~2020-08-27] VITALS: Ht 172.7 cm; Wt 62.0 kg
[~2020-08-27 10:59] MED LIST changes: -APIX5TAB OR; -ATOR20TA50 PO; -DIG0125T PO; -ENAL2.5T11 PO; +FERR-20 PO; -FURO1TAB33 PO; -POTA1TAB61 PO; +TAMS0.4C36 PO
[2020-08-27] MEDS ORDERED: ONDANSETRON HCL 4 MG/2 ML VIAL IV ONE (11:30)
[2020-08-27 12:02] LABS: Basophils # (auto) 0 10 ^3/uL (0-0.2); Basophils % (auto) 0.4 % (0.0-2.0); Eosinophils # (auto) 0 10 ^3/uL (0-0.8); Eosinophils % (auto) 0.9 % (0.0-7.0); Hematocrit 27.7 % (41.0-53.0); Hemoglobin 9.1 g/dL (13.5-17.5); Lymphocytes # (auto) 0.4 10 ^3/uL (0.4-5.4); Lymphocytes % (auto) 10.4 % (10.0-50.0); Mean Corpuscular Hemoglobin 30.8 pg (28.0-32.0); Mean Corpuscular Hgb Conc. 32.9 g/dL (32.0-36.0); Mean Corpuscular Volume 93.5 fL (80.0-100.0); Monocytes # (auto) 0.5 10 ^3/uL (0-1.3); Monocytes % (auto) 12.1 % (0.0-12.0); Neutrophils # (auto) 3.1 10 ^3/uL (1.6-8.6); Neutrophils % (auto) 76.2 % (37.0-80.0); Platelet Count (auto) 102 10^3/uL (140-450); Red Blood Cells 2.97 10^6/uL (4.5-5.90); Red Cell Distribution Width 15.1 % (11.8-14.3)
[2020-08-27 12:12] LABS: INR 1.18 (0.9-1.15); Partial Thromboplastin Time 25.8 sec (23.0-31.2)
[2020-08-27] MEDS ORDERED: SODIUM CHLORIDE 0.9% 1,000 ML IV ONE (12:30)
[2020-08-27] MEDS ORDERED: cefTRIAXone 1GM/50ML D5W 50 ML IV ONE (12:30)
[2020-08-27 13:25] LABS: Albumin 2.8 g/dL (3.4-5.0); Calcium 8.8 mg/dL (8.5-10.1); Magnesium 2.8 mg/dL (1.6-2.6); Potassium 4.1 mmol/L (3.5-5.1)
[2020-08-27 13:28] LABS: BUN/Creatinine Ratio 19.3; Bilirubin, Total 1.8 mg/dL (0.2-1.0); Total Protein 7.6 g/dL (6.4-8.2)
[2020-08-27] MEDS ORDERED: MORPHINE SULF INJ 2 MG/ML SYRINGE 1ML IV PRN ×3 (14:15→16:00)
[2020-08-27] MEDS ORDERED: NITROGLYCERIN 0.4 MG SL TAB SL PRN ×2 (14:15→16:00)
[2020-08-27] MEDS ORDERED: FUR20T PO (14:52)
[2020-08-27] MEDS ORDERED: CARV3.1240 PO (14:52)
[2020-08-27] MEDS ORDERED: SACU1TAB PO (14:52)
[2020-08-27] MEDS ORDERED: POTA10TA51 PO (14:53)
[2020-08-27] MEDS ORDERED: ALBUMIN 25% 100 ML IV ONE (16:00)
[2020-08-27] MEDS ORDERED: HYDROcodone-ACET 5/325MG TAB PO PRN (16:00)
[2020-08-27] MEDS ORDERED: FUROSEMIDE 20 MG/2 ML VIAL IV ONE (16:00)
[2020-08-27] MEDS ORDERED: ACETAMINOPHEN 325 MG TAB PO PRN (16:00)
[2020-08-27] MEDS ORDERED: DOCUSATE SOD 100 MG CAP PO PRN (16:00)
[2020-08-27] MEDS ORDERED: ONDANSETRON HCL 4 MG/2 ML VIAL IV PRN (16:00)
[2020-08-27] MEDS ORDERED: LORazepam 0.5 MG TAB PO PRN (16:00)
[2020-08-27] MEDS ORDERED: metroNIDAZOLE 500MG/100ML 100 ML IV ONE (16:00)
[2020-08-27] MEDS ORDERED: ALUM & MAG HYDROX-SIMETH LIQ(MAALOX) 30 ML PO PRN (16:00)
[2020-08-27 17:17] VITALS: BP 115/67
[2020-08-27] MEDS: TAMSULOSIN HYDROCHLORIDE 0.4 MG CAP PO SCH (18:04)
[2020-08-27 22:00] VITALS: BP 99/61
[2020-08-27] MEDS: CARVEDILOL 3.125 MG TAB PO SCH (22:00)
[2020-08-27] MEDS: ATORVASTATIN 20 MG TAB PO SCH (22:00)
[2020-08-27] MEDS: metroNIDAZOLE 500MG/100ML 100 ML IV SCH (23:36)
[2020-08-27] MEDS: ALBUMIN 25% 50 ML IV SCH (23:37)
[2020-08-28] VITALS (10 sets, daily range): BP systolic 66–117; BP diastolic 29–69
[2020-08-28] MEDS: metroNIDAZOLE 500MG/100ML 100 ML IV SCH ×3 (06:14→21:32)
[2020-08-28] MEDS: FUROSEMIDE 20 MG/2 ML VIAL IV SCH ×2 (06:15→18:00)
[2020-08-28 06:35] LABS: INR 1.39 (0.9-1.15); Partial Thromboplastin Time 30.1 sec (23.0-31.2)
[2020-08-28 06:46] LABS: Alanine Aminotransferase 15 U/L (16-61); Albumin 2.9 g/dL (3.4-5.0); Alkaline Phosphatase 78 U/L (45-117); Anion Gap 9 (5-15); Aspartate Aminotransferase 20 U/L (15-37); BUN/Creatinine Ratio 18.4; Bilirubin, Total 1.7 mg/dL (0.2-1.0); Blood Urea Nitrogen 33 mg/dL (7-18); Calcium 8.3 mg/dL (8.5-10.1); Carbon Dioxide 24 mmol/L (21-32); Chloride 108 mmol/L (98-107); Cholesterol 99 mg/dL (< 200); GFR African American 47 mL/min; GFR Non-African American 38 mL/min; Glucose 157 mg/dL (74-106); HDL Cholesterol 38 mg/dL (40-59); LDL Cholesterol 52 mg/dL (< 100); Lactate Dehydrogenase 216 U/L (87-241); Magnesium 2.5 mg/dL (1.6-2.6); Phosphorus 3.8 mg/dL (2.5-4.90); Potassium 3.7 mmol/L (3.5-5.1); Sodium 141 mmol/L (136-145); Total Protein 7.3 g/dL (6.4-8.2); Triglycerides 79 mg/dL (< 150)
[2020-08-28] MEDS: ALBUMIN 25% 50 ML IV SCH ×3 (08:20→19:50)
[2020-08-28] MEDS: cefTRIAXone 1GM/50ML D5W 50 ML IV SCH (09:00)
[2020-08-28] MEDS ORDERED: POTASSIUM CHL 10 Meq TABLET PO SCH (10:00)
[2020-08-28] MEDS ORDERED: SACUBITRIL-VALSARTAN 24mg/26mg TAB PO SCH (10:00)
[2020-08-28] MEDS: CARVEDILOL 3.125 MG TAB PO SCH (10:29)
[2020-08-28 11:44] LABS: Basophils # (auto) 0 10 ^3/uL (0-0.2); Basophils % (auto) 0.1 % (0.0-2.0); Eosinophils # (auto) 0 10 ^3/uL (0-0.8); Eosinophils % (auto) 0.1 % (0.0-7.0); Hematocrit 28.2 % (41.0-53.0); Hemoglobin 8.9 g/dL (13.5-17.5); Lymphocytes # (auto) 0.6 10 ^3/uL (0.4-5.4); Lymphocytes % (auto) 11.4 % (10.0-50.0); Mean Corpuscular Hemoglobin 30.3 pg (28.0-32.0); Mean Corpuscular Hgb Conc. 31.7 g/dL (32.0-36.0); Mean Corpuscular Volume 95.8 fL (80.0-100.0); Monocytes # (auto) 0.3 10 ^3/uL (0-1.3); Monocytes % (auto) 5.9 % (0.0-12.0); Neutrophils # (auto) 4.6 10 ^3/uL (1.6-8.6); Neutrophils % (auto) 82.5 % (37.0-80.0); Platelet Count (auto) 106 10^3/uL (140-450); Red Blood Cells 2.94 10^6/uL (4.5-5.90); Red Cell Distribution Width 15.8 % (11.8-14.3); White Blood Cell 5.5 10^3/uL (4.4-10.8)
[2020-08-28] MEDS ORDERED: FERROUS SULFATE 300 MG/5 ML ORAL LIQ PO ONE (17:30)
[2020-08-28] MEDS ORDERED: LEVOTHYROXINE SODIUM 100 MCG/5 ML INJ IV ONE (17:30)
[2020-08-28] MEDS: TAMSULOSIN HYDROCHLORIDE 0.4 MG CAP PO SCH (18:00)
[2020-08-28] MEDS: FERROUS SULFATE 300 MG/5 ML ORAL LIQ PO SCH (18:00)
[2020-08-28] MEDS ORDERED: SODIUM CHLORIDE 0.9% 500 ML IV ONE (18:15)
[2020-08-28] MEDS ORDERED: ALBUMIN 25% 50 ML IV ONE (19:36)
[2020-08-28] MEDS: ATORVASTATIN 20 MG TAB PO SCH (21:33)
[2020-08-28] MEDS ORDERED: NOREPINEPHRINE 8 MG/250ML KIT 250 ML IV ONE (23:37)
[2020-08-28] MEDS: NOREPINEPHRINE 8 MG/250ML KIT 250 ML IV SCH (23:50)
[2020-08-29] VITALS (81 sets, daily range): BP systolic 72–154; BP diastolic 33–71
[2020-08-29] MEDS: LEVOTHYROXINE SODIUM 100 MCG TAB PO SCH ×2 (06:02→07:31)
[2020-08-29] MEDS: metroNIDAZOLE 500MG/100ML 100 ML IV SCH ×3 (06:02→22:45)
[2020-08-29 07:17] LABS: Basophils # (auto) 0 10 ^3/uL (0-0.2); Basophils % (auto) 0.2 % (0.0-2.0); Eosinophils # (auto) 0 10 ^3/uL (0-0.8); Eosinophils % (auto) 0.1 % (0.0-7.0); Hematocrit 25.1 % (41.0-53.0); Lymphocytes # (auto) 0.8 10 ^3/uL (0.4-5.4); Lymphocytes % (auto) 10.9 % (10.0-50.0); Mean Corpuscular Hemoglobin 30.4 pg (28.0-32.0); Mean Corpuscular Hgb Conc. 32.1 g/dL (32.0-36.0); Mean Corpuscular Volume 94.7 fL (80.0-100.0); Monocytes # (auto) 0.6 10 ^3/uL (0-1.3); Monocytes % (auto) 7.8 % (0.0-12.0); Neutrophils # (auto) 6.3 10 ^3/uL (1.6-8.6); Platelet Count (auto) 102 10^3/uL (140-450); Red Blood Cells 2.65 10^6/uL (4.5-5.90); Red Cell Distribution Width 15.6 % (11.8-14.3); White Blood Cell 7.7 10^3/uL (4.4-10.8)
[2020-08-29 07:24] LABS: Albumin 2.7 g/dL (3.4-5.0); Calcium 7.3 mg/dL (8.5-10.1); Magnesium 2.2 mg/dL (1.6-2.6); Potassium 3.8 mmol/L (3.5-5.1)
[2020-08-29 07:29] LABS: Phosphorus 3.3 mg/dL (2.5-4.90); Total Protein 6.2 g/dL (6.4-8.2)
[2020-08-29 07:30] LABS: INR 1.4 (0.9-1.15); Partial Thromboplastin Time 34.6 sec (23.0-31.2)
[2020-08-29] MEDS: cefTRIAXone 1GM/50ML D5W 50 ML IV SCH (08:56)
[2020-08-29] MEDS: FERROUS SULFATE 300 MG/5 ML ORAL LIQ PO SCH ×3 (08:56→18:32)
[2020-08-29] MEDS ORDERED: POTASSIUM CHL 10 Meq TABLET PO SCH (10:00)
[2020-08-29] MEDS: ATORVASTATIN 20 MG TAB PO SCH (22:00)
[2020-08-30 05:00] VITALS: BP 96/51
[2020-08-30] MEDS: metroNIDAZOLE 500MG/100ML 100 ML IV SCH ×3 (05:49→21:59)
[2020-08-30] MEDS: LEVOTHYROXINE SODIUM 100 MCG TAB PO SCH (06:24)
[2020-08-30 07:32] LABS: Basophils # (auto) 0 10 ^3/uL (0-0.2); Basophils % (auto) 0.3 % (0.0-2.0); Eosinophils # (auto) 0 10 ^3/uL (0-0.8); Hemoglobin 7.6 g/dL (13.5-17.5); Lymphocytes # (auto) 0.5 10 ^3/uL (0.4-5.4); Monocytes # (auto) 0.5 10 ^3/uL (0-1.3)
[2020-08-30 07:36] LABS: Eosinophils % (auto) 1.1 % (0.0-7.0); Lymphocytes % (auto) 12.5 % (10.0-50.0); Mean Corpuscular Hemoglobin 31.2 pg (28.0-32.0); Mean Corpuscular Hgb Conc. 33.1 g/dL (32.0-36.0); Mean Corpuscular Volume 94.2 fL (80.0-100.0); Monocytes % (auto) 13.5 % (0.0-12.0); Neutrophils # (auto) 2.7 10 ^3/uL (1.6-8.6); Neutrophils % (auto) 72.6 % (37.0-80.0); Platelet Count (auto) 85 10^3/uL (140-450); Red Blood Cells 2.44 10^6/uL (4.5-5.90); Red Cell Distribution Width 15.4 % (11.8-14.3); White Blood Cell 3.7 10^3/uL (4.4-10.8)
[2020-08-30 07:50] LABS: INR 1.37 (0.9-1.15); Partial Thromboplastin Time 31.3 sec (23.0-31.2)
[2020-08-30 07:51] LABS: Albumin 2.4 g/dL (3.4-5.0); Calcium 7.8 mg/dL (8.5-10.1); Magnesium 2.5 mg/dL (1.6-2.6); Potassium 3.6 mmol/L (3.5-5.1)
[2020-08-30 07:57] LABS: Bilirubin, Total 0.5 mg/dL (0.2-1.0); Phosphorus 2.3 mg/dL (2.5-4.90)
[2020-08-30] MEDS: FERROUS SULFATE 300 MG/5 ML ORAL LIQ PO SCH ×3 (08:43→17:44)
[2020-08-30] MEDS: cefTRIAXone 1GM/50ML D5W 50 ML IV SCH (08:44)
[2020-08-30 09:00] VITALS: BP 104/60
[2020-08-30 13:00] VITALS: BP 110/60
[2020-08-30] MEDS: NOREPINEPHRINE 8 MG/250ML KIT 250 ML IV SCH (14:03)
[2020-08-30 16:30] VITALS: BP 115/63
[2020-08-30] MEDS: ATORVASTATIN 20 MG TAB PO SCH (21:59)
[2020-08-30 22:00] VITALS: BP 120/70
[2020-08-31 05:00] VITALS: BP 124/72
[2020-08-31] MEDS: LEVOTHYROXINE SODIUM 100 MCG TAB PO SCH (06:06)
[2020-08-31] MEDS: metroNIDAZOLE 500MG/100ML 100 ML IV SCH ×3 (06:06→21:34)
[2020-08-31] MEDS: cefTRIAXone 1GM/50ML D5W 50 ML IV SCH (08:30)
[2020-08-31] MEDS: FERROUS SULFATE 300 MG/5 ML ORAL LIQ PO SCH ×3 (08:32→17:50)
[2020-08-31 08:57] VITALS: BP 107/63
[2020-08-31 17:00] VITALS: BP 109/69
[2020-08-31 18:09] VITALS: BP 90/49
[2020-08-31] MEDS: ATORVASTATIN 20 MG TAB PO SCH (21:34)
[2020-08-31 21:52] VITALS: BP 96/50
[2020-09-01 05:00] VITALS: BP 121/71
[2020-09-01] MEDS: LEVOTHYROXINE SODIUM 100 MCG TAB PO SCH (05:54)
[2020-09-01] MEDS: metroNIDAZOLE 500MG/100ML 100 ML IV SCH ×2 (05:54→14:10)
[2020-09-01] MEDS: cefTRIAXone 1GM/50ML D5W 50 ML IV SCH (08:08)
[2020-09-01] MEDS: FERROUS SULFATE 300 MG/5 ML ORAL LIQ PO SCH ×2 (08:09→11:48)
[2020-09-01 08:30] VITALS: BP 110/63
[2020-09-01 13:00] VITALS: BP 141/68
== END 2020-09-01 15:20 | disposition home health service (06) | DRG 291 ==
LOC: ER 10:59 → TELE 14:02 → TELE-EAST 15:45 → DOU IN ICU 08-28 23:05 → TELE-CENTR 08-29 21:19 → EAST 08-30 17:53 → CENTRAL 08-30 18:07 → TELE-CENTR 08-30 19:31
PROVIDERS: ADMIT Hospitalist; ATTEND Family Medicine
PROC: 0W9G30Z Drainage of Peritoneal Cavity with Drainage Device, Percutaneous Approach (ICD-10-PCS; principal; 2020-08-30)
DX: I13.0 Hypertensive heart and chronic kidney disease with heart failure and stage 1 through stage 4 chronic kidney disease, or unspecified chronic kidney disease (principal); I50.43 Acute on chronic combined systolic (congestive) and diastolic (congestive) heart failure; J18.9 Pneumonia, unspecified organism; E43 Unspecified severe protein-calorie malnutrition; J96.21 Acute and chronic respiratory failure with hypoxia; E03.5 Myxedema coma; K43.6 Other and unspecified ventral hernia with obstruction, without gangrene; R18.8 Other ascites; L03.311 Cellulitis of abdominal wall; K42.0 Umbilical hernia with obstruction, without gangrene; I42.8 Other cardiomyopathies; D69.6 Thrombocytopenia, unspecified; K76.0 Fatty (change of) liver, not elsewhere classified; D50.8 Other iron deficiency anemias; K40.90 Unilateral inguinal hernia, without obstruction or gangrene, not specified as recurrent; N18.31 Chronic kidney disease, stage 3a; E86.0 Dehydration; I50.82 Biventricular heart failure; I48.91 Unspecified atrial fibrillation; K43.2 Incisional hernia without obstruction or gangrene; E03.9 Hypothyroidism, unspecified; E78.00 Pure hypercholesterolemia, unspecified; I25.5 Ischemic cardiomyopathy; I27.21 Secondary pulmonary arterial hypertension; Z79.890 Hormone replacement therapy; Z79.899 Other long term (current) drug therapy; Z85.038 Personal history of other malignant neoplasm of large intestine; Z86.11 Personal history of tuberculosis; Z90.49 Acquired absence of other specified parts of digestive tract; F32.9 Major depressive disorder, single episode, unspecified; Z20.822 Contact with and (suspected) exposure to COVID-19; B95.62 Methicillin resistant Staphylococcus aureus infection as the cause of diseases classified elsewhere; N40.0 Benign prostatic hyperplasia without lower urinary tract symptoms; K76.1 Chronic passive congestion of liver; I95.9 Hypotension, unspecified
CPT/HCPCS: 36415; 36600; 71045; 71250; 74176; 76942; 80053; 80061; 82306; 82550; 82728; 82805; 83036; 83540; 83550; 83605; 83615; 83690; 83735; 83880; 84100; 84443; 84484; 85025; 85610; 85730; 86850; 86900; 86901; 87040; 87081; 87426; 89051; 93005; 93306; 96365; 96375; 99291; G0378; J0696; J2405; J3490; P9047

== ENCOUNTER 2021-03-18 11:34 | Inpatient (IN) | payer MEDICARE, OTHER ==
[~2021-03-18] VITALS: Ht 170.2 cm; Wt 60.6 kg
[~2021-03-18 11:34] MED LIST changes: +CARV3.1240 PO; -FERR-20 PO; +FUR20T PO; +POTA10TA51 PO; +SACU1TAB PO
[2021-03-18] MEDS ORDERED: SODIUM CHLORIDE 0.9% 500 ML IV ONE (11:45)
[2021-03-18 12:29] LABS: Hematocrit 21.3 % (41.0-53.0); Mean Corpuscular Hgb Conc. 30.8 g/dL (32.0-36.0); Mean Corpuscular Volume 74.9 fL (80.0-100.0); Red Blood Cells 2.85 10^6/uL (4.5-5.90); White Blood Cell 5.3 10^3/uL (4.4-10.8)
[2021-03-18 12:35] LABS: Red Cell Distribution Width 20.4 % (11.8-14.3)
[2021-03-18 12:38] LABS: Hemoglobin 6.6 g/dL (13.5-17.5)
[2021-03-18 12:39] LABS: Basophils % (manual) 0 (0.0-2.0); Blast Cells 0; Eosinophils % (manual) 0 (0-7); Metamyelocytes % 0; Myelocytes % 0; Promyelocytes % 0; Reactive Lymphocytes 0
[2021-03-18 12:41] LABS: Albumin 2.5 g/dL (3.4-5.0); Calcium 8.2 mg/dL (8.5-10.1); Potassium 4.9 mmol/L (3.5-5.1)
[2021-03-18 12:43] LABS: BUN/Creatinine Ratio 36.3
[2021-03-18 12:48] LABS: Bilirubin, Total 2.1 mg/dL (0.2-1.0); Total Protein 8.2 g/dL (6.4-8.2)
[2021-03-18 13:06] LABS: Band Neutrophils % (manual) 4; Lymphocytes % (manual) 11 (10.0-50.0); Monocytes % (manual) 12 (0-12)
[2021-03-18 16:13] LABS: Urine Bacteria FEW /hpf (None Seen); Urine Blood 3+ /uL (Negative); Urine Specific Gravity 1.014 (1.001-1.035); Urine WBC 6 /hpf (0 - 3)
[2021-03-18 16:15] VITALS: BP 119/67
[2021-03-18 16:30] VITALS: BP 101/62
[2021-03-18] MEDS ORDERED: ACETAMINOPHEN 325 MG TAB PO ONE (16:45)
[2021-03-18] MEDS ORDERED: ACETAMINOPHEN 325 MG TAB PO PRN (18:15)
[2021-03-18] MEDS ORDERED: HYDROcodone-ACET 5/325MG TAB PO PRN (18:15)
[2021-03-18] MEDS ORDERED: ONDANSETRON HCL 4 MG/2 ML VIAL IV PRN (18:15)
[2021-03-18] MEDS ORDERED: DEXTROSE (50%) 50ML SYRG IV PRN (18:15)
[2021-03-18] MEDS ORDERED: DOCUSATE SOD 100 MG CAP PO PRN (18:15)
[2021-03-18] MEDS ORDERED: FUROSEMIDE 20 MG TAB PO SCH (18:35)
[2021-03-18] MEDS: SODIUM CHLORIDE 0.9% 1,000 ML IV SCH (18:42)
[2021-03-18] MEDS: cefTRIAXone 1GM/50ML D5W 50 ML IV SCH (18:55)
[2021-03-18 21:40] VITALS: BP 93/57
[2021-03-18 21:54] VITALS: BP 93/57
[2021-03-18] MEDS: CARVEDILOL 3.125 MG TAB PO SCH (22:00)
[2021-03-18] MEDS: ACCU-CHEK COMFORT CURVE STRIP VI SCH (23:34)
[2021-03-18] MEDS: InsuLIN REG 1unit/0.01ml Soln (100units/ml) SC SCH (23:37)
[2021-03-19] VITALS (9 sets, daily range): BP systolic 96–138; BP diastolic 56–82
[2021-03-19 05:44] LABS: Basophils # (auto) 0 10 ^3/uL (0-0.2); Basophils % (auto) 0.1 % (0.0-2.0); Eosinophils # (auto) 0 10 ^3/uL (0-0.8); Hemoglobin 7.2 g/dL (13.5-17.5); Lymphocytes # (auto) 0.5 10 ^3/uL (0.4-5.4); Neutrophils # (auto) 4.7 10 ^3/uL (1.6-8.6); White Blood Cell 6.1 10^3/uL (4.4-10.8)
[2021-03-19 05:47] LABS: Eosinophils % (auto) 0.1 % (0.0-7.0); Hematocrit 23.5 % (41.0-53.0); Lymphocytes % (auto) 8.2 % (10.0-50.0); Mean Corpuscular Hemoglobin 23.5 pg (28.0-32.0); Mean Corpuscular Hgb Conc. 30.7 g/dL (32.0-36.0); Mean Corpuscular Volume 76.4 fL (80.0-100.0); Monocytes # (auto) 0.8 10 ^3/uL (0-1.3); Monocytes % (auto) 13.7 % (0.0-12.0); Neutrophils % (auto) 77.9 % (37.0-80.0); Nucleated Red Blood Cells % 0.1 %; Red Blood Cells 3.07 10^6/uL (4.5-5.90)
[2021-03-19] MEDS: InsuLIN REG 1unit/0.01ml Soln (100units/ml) SC SCH ×4 (06:00→23:13)
[2021-03-19] MEDS: ACCU-CHEK COMFORT CURVE STRIP VI SCH ×4 (06:00→23:30)
[2021-03-19 06:16] LABS: Red Cell Distribution Width 20.8 % (11.8-14.3)
[2021-03-19] MEDS: CARVEDILOL 3.125 MG TAB PO SCH ×2 (09:32→23:05)
[2021-03-19] MEDS: cefTRIAXone 1GM/50ML D5W 50 ML IV SCH (09:33)
[2021-03-19] MEDS: SACUBITRIL-VALSARTAN 24mg/26mg TAB PO SCH (09:33)
[2021-03-19 13:04] LABS: INR 1.21 (0.9-1.15); Partial Thromboplastin Time 31.2 sec (23.6-33.0)
[2021-03-19] MEDS: TAMSULOSIN HYDROCHLORIDE 0.4 MG CAP PO SCH (17:38)
[2021-03-19] MEDS: SODIUM CHLORIDE 0.9% 1,000 ML IV SCH (17:39)
[2021-03-20 05:00] VITALS: BP 94/59
[2021-03-20] MEDS: InsuLIN REG 1unit/0.01ml Soln (100units/ml) SC SCH ×3 (06:00→17:42)
[2021-03-20 06:20] LABS: Basophils # (auto) 0 10 ^3/uL (0-0.2); Eosinophils # (auto) 0 10 ^3/uL (0-0.8); Lymphocytes # (auto) 0.5 10 ^3/uL (0.4-5.4); Mean Corpuscular Volume 76.8 fL (80.0-100.0); Monocytes # (auto) 0.7 10 ^3/uL (0-1.3)
[2021-03-20 06:23] LABS: Basophils % (auto) 0.3 % (0.0-2.0); Eosinophils % (auto) 0.2 % (0.0-7.0); Hematocrit 26.3 % (41.0-53.0); Hemoglobin 8.4 g/dL (13.5-17.5); Lymphocytes % (auto) 9.4 % (10.0-50.0); Mean Corpuscular Hemoglobin 24.4 pg (28.0-32.0); Mean Corpuscular Hgb Conc. 31.8 g/dL (32.0-36.0); Monocytes % (auto) 13.4 % (0.0-12.0); Neutrophils # (auto) 3.8 10 ^3/uL (1.6-8.6); Neutrophils % (auto) 76.7 % (37.0-80.0); Red Blood Cells 3.43 10^6/uL (4.5-5.90)
[2021-03-20] MEDS: ACCU-CHEK COMFORT CURVE STRIP VI SCH ×3 (06:24→17:37)
[2021-03-20 06:25] LABS: Red Cell Distribution Width 20.4 % (11.8-14.3)
[2021-03-20 06:35] LABS: BUN/Creatinine Ratio 48.7; Calcium 7.5 mg/dL (8.5-10.1); Potassium 4.3 mmol/L (3.5-5.1)
[2021-03-20 08:38] VITALS: BP 107/64
[2021-03-20] MEDS: SACUBITRIL-VALSARTAN 24mg/26mg TAB PO SCH (09:40)
[2021-03-20] MEDS: cefTRIAXone 1GM/50ML D5W 50 ML IV SCH (09:40)
[2021-03-20] MEDS: CARVEDILOL 3.125 MG TAB PO SCH ×2 (09:40→21:34)
[2021-03-20 12:03] VITALS: BP 115/70
[2021-03-20 16:15] VITALS: BP 103/65
[2021-03-20 16:27] LABS: Protein, Urine 99.8 mg/dL (0.0-11.9)
[2021-03-20] MEDS: TAMSULOSIN HYDROCHLORIDE 0.4 MG CAP PO SCH (17:37)
[2021-03-20] MEDS: SODIUM CHLORIDE 0.9% 1,000 ML IV SCH (17:37)
[2021-03-20 22:00] VITALS: BP 102/72
[2021-03-20 22:59] VITALS: BP 102/72
[2021-03-21] MEDS: InsuLIN REG 1unit/0.01ml Soln (100units/ml) SC SCH ×4 (00:11→17:37)
[2021-03-21] MEDS: ACCU-CHEK COMFORT CURVE STRIP VI SCH ×4 (00:12→17:34)
[2021-03-21 05:00] VITALS: BP 92/55
[2021-03-21 06:05] LABS: Basophils # (auto) 0 10 ^3/uL (0-0.2); Basophils % (auto) 0.2 % (0.0-2.0); Eosinophils # (auto) 0 10 ^3/uL (0-0.8); Hemoglobin 8.1 g/dL (13.5-17.5); Lymphocytes # (auto) 0.5 10 ^3/uL (0.4-5.4); Monocytes # (auto) 0.7 10 ^3/uL (0-1.3); Nucleated Red Blood Cells % 0.2 %
[2021-03-21 06:08] LABS: Hematocrit 25.7 % (41.0-53.0); Lymphocytes % (auto) 12.7 % (10.0-50.0); Mean Corpuscular Hemoglobin 24.3 pg (28.0-32.0); Mean Corpuscular Hgb Conc. 31.7 g/dL (32.0-36.0); Mean Corpuscular Volume 76.9 fL (80.0-100.0); Monocytes % (auto) 17.1 % (0.0-12.0); Neutrophils # (auto) 2.7 10 ^3/uL (1.6-8.6); Red Blood Cells 3.34 10^6/uL (4.5-5.90)
[2021-03-21 06:28] LABS: Red Cell Distribution Width 20.6 % (11.8-14.3)
[2021-03-21 08:35] VITALS: BP 114/66
[2021-03-21] MEDS: cefTRIAXone 1GM/50ML D5W 50 ML IV SCH (09:55)
[2021-03-21] MEDS: CARVEDILOL 3.125 MG TAB PO SCH ×2 (09:56→21:40)
[2021-03-21] MEDS: SACUBITRIL-VALSARTAN 24mg/26mg TAB PO SCH (09:56)
[2021-03-21 13:00] VITALS: BP 108/65
[2021-03-21 17:27] VITALS: BP 106/63
[2021-03-21] MEDS: TAMSULOSIN HYDROCHLORIDE 0.4 MG CAP PO SCH (17:34)
[2021-03-21 22:00] VITALS: BP 114/66
[2021-03-22] MEDS: InsuLIN REG 1unit/0.01ml Soln (100units/ml) SC SCH ×3 (00:45→12:20)
[2021-03-22 05:08] VITALS: BP 131/65
[2021-03-22] MEDS: ACCU-CHEK COMFORT CURVE STRIP VI SCH ×3 (05:50→12:18)
[2021-03-22 06:46] LABS: Basophils # (auto) 0 10 ^3/uL (0-0.2); Hemoglobin 8.6 g/dL (13.5-17.5); Neutrophils # (auto) 2.4 10 ^3/uL (1.6-8.6); White Blood Cell 3.8 10^3/uL (4.4-10.8)
[2021-03-22 06:49] LABS: Basophils % (auto) 0.4 % (0.0-2.0); Eosinophils # (auto) 0.1 10 ^3/uL (0-0.8); Eosinophils % (auto) 1.6 % (0.0-7.0); Lymphocytes # (auto) 0.6 10 ^3/uL (0.4-5.4); Lymphocytes % (auto) 17.2 % (10.0-50.0); Mean Corpuscular Hemoglobin 24.6 pg (28.0-32.0); Mean Corpuscular Hgb Conc. 31.8 g/dL (32.0-36.0); Mean Corpuscular Volume 77.5 fL (80.0-100.0); Monocytes # (auto) 0.6 10 ^3/uL (0-1.3); Monocytes % (auto) 16.4 % (0.0-12.0); Neutrophils % (auto) 64.4 % (37.0-80.0); Nucleated Red Blood Cells % 0.3 %; Red Blood Cells 3.48 10^6/uL (4.5-5.90); Red Cell Distribution Width 20.9 % (11.8-14.3)
[2021-03-22 06:57] LABS: BUN/Creatinine Ratio 45.7; Calcium 7.8 mg/dL (8.5-10.1); Potassium 4.3 mmol/L (3.5-5.1)
[2021-03-22 09:00] VITALS: BP 102/70
[2021-03-22] MEDS: cefTRIAXone 1GM/50ML D5W 50 ML IV SCH (09:45)
[2021-03-22] MEDS: SACUBITRIL-VALSARTAN 24mg/26mg TAB PO SCH (09:46)
[2021-03-22] MEDS: CARVEDILOL 3.125 MG TAB PO SCH (09:46)
[2021-03-22 12:59] VITALS: BP 109/70
[2021-03-22 16:34] VITALS: BP 103/71
== END 2021-03-22 18:06 | disposition hospice, home (50) | DRG 871 ==
LOC: ER 11:34 → OVERFLOW 18:04 → WEST WING 20:40
PROVIDERS: ADMIT Hospitalist; ATTEND Family Medicine
PROC: 30233N1 Transfusion of Nonautologous Red Blood Cells into Peripheral Vein, Percutaneous Approach (ICD-10-PCS; principal; 2021-03-18)
DX: A41.9 Sepsis, unspecified organism (principal); R65.21 Severe sepsis with septic shock; R18.8 Other ascites; L03.311 Cellulitis of abdominal wall; N39.0 Urinary tract infection, site not specified; N17.9 Acute kidney failure, unspecified; I13.0 Hypertensive heart and chronic kidney disease with heart failure and stage 1 through stage 4 chronic kidney disease, or unspecified chronic kidney disease; I50.42 Chronic combined systolic (congestive) and diastolic (congestive) heart failure; D63.8 Anemia in other chronic diseases classified elsewhere; K40.90 Unilateral inguinal hernia, without obstruction or gangrene, not specified as recurrent; E03.9 Hypothyroidism, unspecified; D50.9 Iron deficiency anemia, unspecified; N40.0 Benign prostatic hyperplasia without lower urinary tract symptoms; F32.A Depression, unspecified; I48.91 Unspecified atrial fibrillation; E11.22 Type 2 diabetes mellitus with diabetic chronic kidney disease; N18.30 Chronic kidney disease, stage 3 unspecified; R79.89 Other specified abnormal findings of blood chemistry; Z20.822 Contact with and (suspected) exposure to COVID-19; Z51.5 Encounter for palliative care; Z79.899 Other long term (current) drug therapy; Z85.038 Personal history of other malignant neoplasm of large intestine; Z87.440 Personal history of urinary (tract) infections; Z90.49 Acquired absence of other specified parts of digestive tract; Z99.3 Dependence on wheelchair
CPT/HCPCS: 36415; 36430; 71045; 74176; 76775; 80048; 80053; 81001; 82378; 82570; 82962; 83605; 84154; 84156; 84300; 84484; 85007; 85025; 85027; 85379; 85610; 85730; 86850; 86900; 86901; 86920; 87040; 87086; 87426; 93005; 93970; 96360; 96361; 99291; G0378; J0696; J1815